=== PATIENT | male | born 1985 | race Caucasian/White ===

== ENCOUNTER 2020-07-14 01:54 | Emergency (ER) | payer SELFPAY ==
[~2020-07-14] VITALS: Ht 170.2 cm; Wt 61.0 kg
[2020-07-14 04:26] VITALS: BP 155/97
[2020-07-14 04:38] LABS: CLARITY URINE CLEAR (CLEAR); COLOR URINE DARK YELLOW (YELLOW); KETONES URINE TRACE (NEGATIVE); LEUKOCYTE ESTERASE URINE NEGATIVE (NEGATIVE); NITRITE URINE NEGATIVE (NEGATIVE); OCCULT BLOOD URINE NEGATIVE (NEGATIVE); PH URINE 5.5 (4.5-8.0); PROTEIN URINE TRACE (NEGATIVE); SPECIFIC GRAVITY URINE 1.036 (1.005-1.030)
== END 2020-07-14 05:10 | disposition home or self-care (01) ==
LOC: ER 02:25
DX: N48.89 Other specified disorders of penis (principal)
CPT/HCPCS: 81003; 99283

== ENCOUNTER 2023-11-05 18:45 | Emergency (ER) | payer SELFPAY ==
[~2023-11-05] VITALS: Ht 170.2 cm; Wt 99.8 kg
[2023-11-05 18:57] VITALS: TEMP 98; O2SAT 98
[2023-11-05] MEDS ORDERED: IBUP-2029 MT (21:09)
[2023-11-05] MEDS ORDERED: GABA-532 MT (21:09)
[2023-11-05] MEDS ORDERED: ACYC200C31 MT (21:09)
[2023-11-05] MEDS: ACYCLOVIR 400 MG TABLET PO ONE (21:41)
[2023-11-05 21:42] VITALS: BP 157/97; PULSE 100; RESP 18
[2023-11-05] MEDS: GABAPENTIN 300MG CAPSULE PO ONE (21:42)
[2023-11-05] MEDS: IBUPROFEN 600MG TABLET PO ONE (21:42)
== END 2023-11-05 22:28 | disposition home or self-care (01) ==
LOC: ER 18:45
DX: B02.9 Zoster without complications (principal); Z98.890 Other specified postprocedural states
CPT/HCPCS: 99284

== ENCOUNTER 2023-11-07 13:31 | Emergency (ER) | payer MEDICARE, MEDICAID ==
[~2023-11-07] VITALS: Ht 160 cm; Wt 100.0 kg
[~2023-11-07 13:31] MED LIST: ACYC200C31 MT; GABA-532 MT; IBUP-2029 MT
[2023-11-07 13:34] VITALS: O2SAT 100
[2023-11-07] MEDS ORDERED: VALA100044 MT (13:56)
[2023-11-07] MEDS ORDERED: HYDR-4001 MT (13:56)
[2023-11-07 14:26] VITALS: BP 149/102; PULSE 95; RESP 18; TEMP 98.7
== END 2023-11-07 14:30 | disposition home or self-care (01) ==
LOC: ER 13:31
DX: B02.9 Zoster without complications (principal)
CPT/HCPCS: 99283

== ENCOUNTER 2025-04-27 11:28 | Emergency (ER) | payer BC, OTHER ==
[~2025-04-27] VITALS: Ht 170.2 cm; Wt 100.0 kg
[~2025-04-27 11:28] MED LIST changes: +ACYC-58 MT; -ACYC200C31 MT; +GABA-1180 MT; -GABA-532 MT; +HYDR-4001 MT; +IBUP-1455 MT; -IBUP-2029 MT; +VALA100044 MT
[2025-04-27 11:41] VITALS: O2SAT 99
[2025-04-27] MEDS ORDERED: KETO10TA2 MT (12:03)
[2025-04-27] MEDS ORDERED: CEPH500C2 MT (12:03)
[2025-04-27 12:19] VITALS: BP 130/81; PULSE 81; RESP 15; TEMP 37.1; O2SAT 99
== END 2025-04-27 12:27 | disposition home or self-care (01) ==
LOC: ER 11:28
DX: S60.562A Insect bite (nonvenomous) of left hand, initial encounter (principal); L03.114 Cellulitis of left upper limb; W57.XXXA Bitten or stung by nonvenomous insect and other nonvenomous arthropods, initial encounter; Y93.89 Activity, other specified; Y92.89 Other specified places as the place of occurrence of the external cause; Y99.8 Other external cause status
CPT/HCPCS: 99283